=== PATIENT | female | born 1970 | race Caucasian/White ===

== ENCOUNTER 2016-06-23 08:33 | Day surgery (SDC) | payer BC ==
[~2016-06-23] VITALS: Ht 170.2 cm; Wt 83.0 kg
--- NOTE | ~2016-06-23 | OR ---
PATIENT'S NAME: MARIANNA SMITH [facility] AGE: 46 Y [address] ROOM: [place] [address] [place] [facility] [place]: [place]23[place] OR/Procedure Report DISCHARGE DATE: 06/23/2016 FAMILY PHYSICIAN: Pedro Pablo Gilbert MD ATTENDING PHYSICIAN: Rusty Bonilla V SURGEON: Rusty Bonilla MD VOCATIONAL TEACHER: Maria Isabel Seay PA-C. DATE OF PROCEDURE: 06/23/2016 PREOPERATIVE DIAGNOSIS: Left cervical neck mass. POSTOPERATIVE DIAGNOSIS: Left cervical neck mass. OPERATION/PROCEDURE: Excisional biopsy, left and deep anterior cervical lymph node. ESTIMATED BLOOD LOSS: Minimal. COMPLICATIONS: None. DESCRIPTION OF PROCEDURE: The patient was taken to the operating room and laid in supine position with general endotracheal anesthesia. Head was rotated to the right, shoulder roll placed, and head was placed in a sniffing position. Proposed incision line marked and infiltrated with 1% lidocaine with epinephrine solution. The neck was prepped and draped in usual sterile fashion using Betadine solution. Approximately 2.5 to 3 cm horizontal neck incision was performed using #15 blade. Subcutaneous tissues and platysma divided using #15 blade. Blunt dissection was performed using the hemostat carried along the anterior border of sternocleidomastoid muscle. Neck mass was identified and it was felt to be consistent with a lymph node. Circumferential dissection was performed and carried superficial in between the jugular vein and the common carotid. Hemostasis was obtained using bipolar. Specimen was removed and sent for Pathology. Neck was irrigated with copious amounts of saline solution. Subcutaneous tissues were closed using interrupted 5-0 Vicryl suture. Skin closure performed using a running subcuticular 4-0 Monocryl. Steri-Strips and occlusive dressing was applied. The patient tolerated the procedure well was aroused, extubated, and discharged from the operating room to the recovery room in satisfactory condition. RUSTY BONILLA MD PATIENT'S NAME: MARIANNA SMITH [facility] AGE: 46 Y [address] ROOM: [place] [address] [place] [facility] [place]: 06/23/2016 OR/Procedure Report DISCHARGE DATE: 06/23/2016 FAMILY PHYSICIAN: Pedro Pablo Gilbert MD ATTENDING PHYSICIAN: Rusty Bonilla/edyta /[id number] d: 06/23/16 2317 t: 06/30/16 0734, OPERATIVE SUMMARY
[~2016-06-23 08:33] MED LIST: CLARITIN10 MG PO; QUASENSE 0.15-1 EACH PO; RELPAX20 MG PO
[2016-06-23] MEDS ORDERED: TYLENOL WITH C1 EACH PO (11:59)
== END 2016-06-23 12:58 | disposition disaster alternative care site (69) ==
LOC: GMSU 08:33 → GSDC 08:33
PROC: 07B20ZX Excision of Left Neck Lymphatic, Open Approach, Diagnostic (ICD-10-PCS; principal; 2016-06-23)
DX: R59.9 Enlarged lymph nodes, unspecified (principal); Z87.891 Personal history of nicotine dependence; Z88.0 Allergy status to penicillin; Z88.2 Allergy status to sulfonamides; Z88.8 Allergy status to other drugs, medicaments and biological substances; Z79.899 Other long term (current) drug therapy
CPT/HCPCS: J1100; J2001; J2250; J2405; J2550; J7030